=== PATIENT | female | born 1975 | race Caucasian/White ===

== ENCOUNTER 2017-10-20 00:20 | Emergency (ER) | payer MEDICAID ==
[~2017-10-20] VITALS: Ht 152.4 cm; Wt 65.9 kg
[~2017-10-20 00:20] MED LIST: ONDA4TAB59 PO
[2017-10-20] MEDS ORDERED: iohexol 300mg/ml 100ml inj. ONE (00:41)
[2017-10-20 01:16] LABS: HCG SERUM QL NEGATIVE
[2017-10-20 01:17] VITALS: BP 117/69
[2017-10-20 01:18] LABS: INR 0.9 INR; PARTIAL THROMBOPLASTIN TIME 23 SECONDS (22-32); PROTHROMBIN TIME 9.4 SECONDS (9.0-12.0)
[2017-10-20 01:21] LABS: ALANINE AMINOTRANSFERASE 25 U/L (12-78); ALKALINE PHOSPHATASE 75 IU/L (46-116); ANION GAP 14 (8-16); ASPARTATE AMINO TRANSFERASE 31 U/L (10-37); BILIRUBIN,TOTAL 0.6 MG/DL (0.1-1.0); BLOOD UREA NITROGEN 7 MG/DL (7-18); BUN/CREATININE RATIO 9.2 (6.6-38.0); CALCIUM 8.8 MG/DL (8.5-10.1); CHLORIDE 105 MMOL/L (99-107); CREATININE 0.76 MG/DL (0.40-0.90); ETHANOL 0.219 GM/DL (0.0-0.010); GLUCOSE 94 MG/DL (70-104); POTASSIUM 3.7 MMOL/L (3.5-5.1); SODIUM 141 MMOL/L (135-145); TOTAL CARBON DIOXIDE 21.7 MMOL/L (24-32); eGFR 83 ML/MIN
[2017-10-20 01:30] LABS: URINE HCG NEGATIVE (NEG)
[2017-10-20 02:00] LABS: BASOPHILS # (AUTO) 0.1 X10'3 (0-0.2); BASOPHILS % (AUTO) 0.7 % (0-1); EOSINOPHILS # (AUTO) 0.1 X10'3 (0-0.9); EOSINOPHILS % (AUTO) 1.7 % (0-6); HEMATOCRIT 37.6 % (35.0-45.0); HEMOGLOBIN 12.5 g/dl (12.0-16.0); LYMPHOCYTES # (AUTO) 1.5 X10'3 (1.1-4.8); LYMPHOCYTES % (AUTO) 18.3 % (21-51); MEAN CORPUSCULAR HEMOGLOBIN 28.7 PG (27.0-31.0); MEAN CORPUSCULAR HGB CONC 33.3 % (33.0-36.5); MEAN CORPUSCULAR VOLUME 86.2 FL (78-98); MEAN PLATELET VOLUME 7.9 FL (7.4-10.4); MONOCYTES # (AUTO) 0.4 X10'3 (0-0.9); NEUTROPHILS # (AUTO) 6.3 X10'3 (1.8-7.7); NEUTROPHILS % (AUTO) 74.3 % (42-75); PLATELET COUNT 462 X10'3 (140-440); RED BLOOD COUNT 4.37 X10'6 (4.20-5.60); RED CELL DISTRIBUTION WIDTH 17.1 % (11.5-14.5); WHITE BLOOD COUNT 8.4 X10'3 (4.5-11.0)
[2017-10-20 02:15] LABS: CLARITY,URINE CLEAR (Clear); COLOR,URINE YELLOW (Yellow); GLUCOSE, URINE NEGATIVE (Neg); KETONES,URINE NEGATIVE (Neg); LEUKOCYTE ESTERASE ,URINE NEGATIVE (Neg); NITRITES, URINE NEGATIVE (Neg); OCCULT BLOOD,URINE NEGATIVE (Neg); PH,URINE 5.5 (4.8-8.0); PROTEIN,URINE NEGATIVE (Neg); UROBILINOGEN,URINE 0.2 E.U/dL (0.2-1.0)
[2017-10-20 02:16] LABS: UA COLLECTION TYPE CLN CATCH MIDSTREAM
== END 2017-10-20 02:41 | disposition left against medical advice (07) ==
LOC: ER 00:21
DX: F10.129 Alcohol abuse with intoxication, unspecified (principal); R07.89 Other chest pain; R10.10 Upper abdominal pain, unspecified; F17.200 Nicotine dependence, unspecified, uncomplicated; Z56.0 Unemployment, unspecified; Z60.2 Problems related to living alone; V89.2XXA Person injured in unspecified motor-vehicle accident, traffic, initial encounter; W22.11XA Striking against or struck by driver side automobile airbag, initial encounter; Y93.89 Activity, other specified; Y92.410 Unspecified street and highway as the place of occurrence of the external cause; Y99.8 Other external cause status
CPT/HCPCS: 36415; 71045; 71260; 72125; 74177; 80053; 80320; 81003; 81025; 84703; 85025; 85610; 85730; 93005; 99285; J7030; Q9967

== ENCOUNTER 2021-11-25 19:59 | Emergency (ER) | payer BC, MEDICAID ==
[~2021-11-25] VITALS: Ht 152.4 cm; Wt 63.6 kg
[2021-11-25 20:11] VITALS: BP 145/87
[2021-11-25] MEDS ORDERED: HYDROcodone/acetaminophen 5mg/325mg tablet PO ONE (20:50)
[2021-11-25] MEDS ORDERED: HYDR-3965 PO (21:07)
== END 2021-11-25 21:29 | disposition home or self-care (01) ==
LOC: ER 20:00
DX: S52.502A Unspecified fracture of the lower end of left radius, initial encounter for closed fracture (principal); S40.021A Contusion of right upper arm, initial encounter; F41.9 Anxiety disorder, unspecified; F32.9 Major depressive disorder, single episode, unspecified; Z98.51 Tubal ligation status; Z98.890 Other specified postprocedural states; Z60.2 Problems related to living alone; Z56.0 Unemployment, unspecified; Z72.89 Other problems related to lifestyle; Z88.2 Allergy status to sulfonamides; Z88.8 Allergy status to other drugs, medicaments and biological substances; Z79.899 Other long term (current) drug therapy; W18.39XA Other fall on same level, initial encounter; Y93.9 Activity, unspecified; Y92.89 Other specified places as the place of occurrence of the external cause; Y99.8 Other external cause status
CPT/HCPCS: 29125; 99283

== ENCOUNTER 2022-09-15 19:39 | Emergency (ER) | payer BC ==
[~2022-09-15] VITALS: Ht 152.4 cm; Wt 62.3 kg
[2022-09-15 20:00] LABS: BASOPHILS # (AUTO) 0.1 X10'3 (0-0.2); BASOPHILS % (AUTO) 0.8 % (0-1); EOSINOPHILS # (AUTO) 0.1 X10'3 (0-0.9); EOSINOPHILS % (AUTO) 1.5 % (0-6); HEMATOCRIT 40.5 % (35.0-45.0); HEMOGLOBIN 13.7 g/dl (12.0-16.0); LYMPHOCYTES # (AUTO) 1.5 X10'3 (1.1-4.8); LYMPHOCYTES % (AUTO) 19.5 % (21-51); MEAN CORPUSCULAR HGB CONC 33.8 g/dL (33.0-36.5); MEAN CORPUSCULAR VOLUME 91.7 FL (78-98); MEAN PLATELET VOLUME 7.1 FL (7.4-10.4); MONOCYTES # (AUTO) 0.3 X10'3 (0-0.9); MONOCYTES % (AUTO) 3.8 % (2-12); NEUTROPHILS # (AUTO) 5.6 X10'3 (1.8-7.7); NEUTROPHILS % (AUTO) 74.4 % (42-75); PLATELET COUNT 463 X10'3 (140-440); RED BLOOD COUNT 4.41 X10'6 (4.20-5.60); RED CELL DISTRIBUTION WIDTH 13.8 % (11.5-14.5); WHITE BLOOD COUNT 7.5 X10'3 (4.5-11.0)
[2022-09-15 20:11] LABS: ALANINE AMINOTRANSFERASE 16 U/L (12-78); ALBUMIN/GLOBULIN RATIO 1.1 (1.1-1.5); ALKALINE PHOSPHATASE 58 IU/L (46-116); ANION GAP 9 (8-16); ASPARTATE AMINO TRANSFERASE 18 U/L (10-37); BILIRUBIN,TOTAL 0.9 MG/DL (0.1-1.0); BLOOD UREA NITROGEN 17 MG/DL (7-18); BUN/CREATININE RATIO 20.5 (6.6-38.0); CALCIUM 9.1 MG/DL (8.5-10.1); CHLORIDE 103 MMOL/L (99-107); CREATININE 0.83 MG/DL (0.40-0.90); GLUCOSE 104 MG/DL (70-104); POTASSIUM 3.4 MMOL/L (3.5-5.1); SODIUM 137 MMOL/L (135-145); TOTAL CARBON DIOXIDE 24.8 MMOL/L (24-32); TOTAL PROTEIN 7.7 G/DL (6.4-8.2); eGFR 74 ML/MIN
[2022-09-15 20:18] LABS: MAGNESIUM 2.1 MG/DL (1.5-2.4)
[2022-09-15] MEDS ORDERED: LORazepam 1 MG tablet PO ONE (20:30)
[2022-09-15] MEDS ORDERED: LIDOCAINE 2%/EPI 1:100,000 inj. Multi-dose 20 ML VIAL IJ ONE (20:30)
[2022-09-15] MEDS ORDERED: DOXYCYCLINE 100MG CAPSULE PO STA (20:59)
[2022-09-15] MEDS ORDERED: ondansetron 4mg rapidly disintigrating tab PO ONE (21:00)
[2022-09-15] MEDS ORDERED: cephalexin 250mg capsule PO ONE (21:00)
[2022-09-15] MEDS ORDERED: DOXY100C77 PO (21:04)
[2022-09-15] MEDS ORDERED: CEPH250T PO (21:04)
[2022-09-15 21:39] VITALS: BP 128/72
== END 2022-09-15 21:40 | disposition home or self-care (01) ==
LOC: EEVIPCON 19:41 → ER 19:41
DX: L02.215 Cutaneous abscess of perineum (principal)
CPT/HCPCS: 36415; 46040; 71045; 80053; 83735; 83880; 84484; 85025; 93005; 99285; A6266; A6449

== ENCOUNTER 2023-02-15 03:02 | Outpatient (CLI) | payer BC ==
[2023-02-15 03:51] LABS: BASOPHILS # (AUTO) 0.1 X10'3 (0-0.2); BASOPHILS % (AUTO) 0.7 % (0-1); EOSINOPHILS # (AUTO) 0.3 X10'3 (0-0.9); EOSINOPHILS % (AUTO) 2.6 % (0-6); HEMATOCRIT 37.9 % (35.0-45.0); HEMOGLOBIN 12.7 g/dl (12.0-16.0); LYMPHOCYTES # (AUTO) 3.1 X10'3 (1.1-4.8); LYMPHOCYTES % (AUTO) 31.8 % (21-51); MEAN CORPUSCULAR HEMOGLOBIN 31.3 PG (27.0-31.0); MEAN CORPUSCULAR HGB CONC 33.6 g/dL (33.0-36.5); MEAN CORPUSCULAR VOLUME 93.3 FL (78-98); MEAN PLATELET VOLUME 7.6 FL (7.4-10.4); MONOCYTES # (AUTO) 0.6 X10'3 (0-0.9); MONOCYTES % (AUTO) 5.8 % (2-12); NEUTROPHILS # (AUTO) 5.8 X10'3 (1.8-7.7); NEUTROPHILS % (AUTO) 59.1 % (42-75); PLATELET COUNT 418 X10'3 (140-440); RED BLOOD COUNT 4.06 X10'6 (4.20-5.60); RED CELL DISTRIBUTION WIDTH 13.9 % (11.5-14.5); WHITE BLOOD COUNT 9.9 X10'3 (4.5-11.0)
[2023-02-15 04:05] LABS: ANION GAP 10 (8-16); CHLORIDE 104 MMOL/L (99-107); GLUCOSE 86 MG/DL (70-104); POTASSIUM 3.8 MMOL/L (3.5-5.1); SODIUM 139 MMOL/L (135-145); TOTAL CARBON DIOXIDE 24.6 MMOL/L (24-32)
[2023-02-15 04:06] LABS: ALANINE AMINOTRANSFERASE 19 U/L (12-78); ALBUMIN 3.9 G/DL (3.4-5.0); ALBUMIN/GLOBULIN RATIO 1.1 (1.1-1.5); ASPARTATE AMINO TRANSFERASE 12 U/L (10-37); BILIRUBIN,TOTAL 0.3 MG/DL (0.1-1.0); BLOOD UREA NITROGEN 15 MG/DL (7-18); BUN/CREATININE RATIO 19.7 (10.0-20.0); CALCIUM 9.1 MG/DL (8.5-10.1); CREATININE 0.76 MG/DL (0.40-0.90); TOTAL PROTEIN 7.4 G/DL (6.4-8.2); eGFR 82 ML/MIN
[2023-02-15 04:07] LABS: ALKALINE PHOSPHATASE 57 IU/L (46-116); CHOL/HDL RATIO 2.9 (0.00-4.99); CHOLESTEROL 224 MG/DL (0-200); HDL CHOLESTEROL 76 MG/DL (35-60); LDL CHOLESTEROL 119 MG/DL (50-100); THYROID STIMULATING HORMONE 3.32 ulU/ml (0.34-4.50); TRIGLYCERIDES 53 MG/DL (20-135)
== END 2023-02-15 23:59 | disposition home or self-care (01) ==
LOC: LAB 03:02
PROVIDERS: ATTEND Emergency Medicine
DX: E78.5 Hyperlipidemia, unspecified (principal); R53.83 Other fatigue; Z86.2 Personal history of diseases of the blood and blood-forming organs and certain disorders involving the immune mechanism; Z84.2 Family history of other diseases of the genitourinary system
CPT/HCPCS: 36415; 80053; 80061; 82306; 82607; 84443; 85025

== ENCOUNTER 2023-11-14 23:14 | Emergency (ER) | payer BC ==
[~2023-11-14] VITALS: Ht 152.4 cm; Wt 62.7 kg
[2023-11-14 23:15] VITALS: BP 142/81; PULSE 90; RESP 16; TEMP 98; O2SAT 98
[2023-11-14] MEDS ORDERED: PRED50TA PO (23:43)
[2023-11-14] MEDS: dexamethasone sod phosphate 10mg/ml inj IM STA (23:45)
== END 2023-11-14 23:51 | disposition home or self-care (01) ==
LOC: ER 23:14
DX: T78.40XA Allergy, unspecified, initial encounter (principal); Z88.2 Allergy status to sulfonamides; Z79.899 Other long term (current) drug therapy; Z98.890 Other specified postprocedural states; Z98.51 Tubal ligation status; W57.XXXA Bitten or stung by nonvenomous insect and other nonvenomous arthropods, initial encounter
CPT/HCPCS: 96372; 99283; J1100

== ENCOUNTER 2023-12-28 03:12 | Emergency (ER) | payer BC ==
[~2023-12-28] VITALS: Ht 152.4 cm; Wt 71.8 kg
[~2023-12-28 03:12] MED LIST changes: +PRED50TA PO
[2023-12-28 03:18] VITALS: TEMP 98.4
[2023-12-28] MEDS ORDERED: AMOX-419 PO (03:43)
[2023-12-28 05:15] VITALS: BP 132/84; PULSE 84; RESP 20; O2SAT 99
[2023-12-28] MEDS: ondansetron 4mg rapidly disintigrating tab PO ONE (05:17)
[2023-12-28] MEDS: amox tr/potassium clavulanate 875/125mg TAB PO ONE (05:17)
== END 2023-12-28 05:37 | disposition home or self-care (01) ==
LOC: ER 03:13
DX: S61.551A Open bite of right wrist, initial encounter (principal); F41.9 Anxiety disorder, unspecified; F32.A Depression, unspecified; Z98.890 Other specified postprocedural states; Z98.51 Tubal ligation status; Z72.89 Other problems related to lifestyle; Z60.2 Problems related to living alone; Z56.0 Unemployment, unspecified; Z88.8 Allergy status to other drugs, medicaments and biological substances; Z79.52 Long term (current) use of systemic steroids; Z79.899 Other long term (current) drug therapy; W55.01XA Bitten by cat, initial encounter; Y93.89 Activity, other specified; Y92.89 Other specified places as the place of occurrence of the external cause; Y99.8 Other external cause status
CPT/HCPCS: 99283

== ENCOUNTER 2024-06-29 17:10 | Outpatient (CLI) | payer BC ==
[2024-06-29 17:56] LABS: URINE AMPHETAMINE SCREEN NEGATIVE (Neg); URINE BARBITUATE SCREEN NEGATIVE (Neg); URINE BENZODIAZEPINES SCREEN NEGATIVE (Neg); URINE CANNABINOID SCREEN NEGATIVE (Neg); URINE COCAINE SCREEN NEGATIVE (Neg); URINE METHADONE SCREEN NEGATIVE (Neg); URINE OPIATE SCREEN NEGATIVE (Neg); URINE PHENCYCLIDINE SCREEN NEGATIVE (Neg)
== END 2024-06-29 23:59 | disposition home or self-care (01) ==
LOC: LAB 17:10
PROVIDERS: ATTEND Licensed Practical Nurse
DX: F41.9 Anxiety disorder, unspecified (principal)
CPT/HCPCS: 80305

== ENCOUNTER 2024-09-08 16:34 | Outpatient (CLI) | payer BC ==
[2024-09-08 17:36] LABS: BASOPHILS % (AUTO) 0.4 % (0-1); EOSINOPHILS # (AUTO) 0.1 X10'3 (0-0.9); EOSINOPHILS % (AUTO) 1.1 % (0-6); HEMATOCRIT 38.2 % (35.0-45.0); HEMOGLOBIN 12.8 g/dl (12.0-16.0); LYMPHOCYTES # (AUTO) 1.9 X10'3 (1.1-4.8); LYMPHOCYTES % (AUTO) 17.1 % (21-51); MEAN CORPUSCULAR HEMOGLOBIN 30.1 PG (27.0-31.0); MEAN CORPUSCULAR HGB CONC 33.6 g/dL (33.0-36.5); MEAN CORPUSCULAR VOLUME 89.6 FL (78-98); MEAN PLATELET VOLUME 7.7 FL (7.4-10.4); MONOCYTES # (AUTO) 0.3 X10'3 (0-0.9); MONOCYTES % (AUTO) 3.2 % (2-12); NEUTROPHILS # (AUTO) 8.5 X10'3 (1.8-7.7); NEUTROPHILS % (AUTO) 78.2 % (42-75); PLATELET COUNT 423 X10'3 (140-440); RED BLOOD COUNT 4.26 X10'6 (4.20-5.60); RED CELL DISTRIBUTION WIDTH 14.6 % (11.5-14.5); WHITE BLOOD COUNT 10.8 X10'3 (4.5-11.0)
[2024-09-08 17:43] LABS: ALANINE AMINOTRANSFERASE 17 U/L (12-78); ALBUMIN 3.7 G/DL (3.4-5.0); ALKALINE PHOSPHATASE 60 IU/L (46-116); ANION GAP 9 (8-16); ASPARTATE AMINO TRANSFERASE 12 U/L (10-37); BILIRUBIN,TOTAL 0.8 MG/DL (0.1-1.0); BLOOD UREA NITROGEN 11 MG/DL (7-18); BUN/CREATININE RATIO 16.9 (10.0-20.0); CALCIUM 8.6 MG/DL (8.5-10.1); CHLORIDE 105 MMOL/L (99-107); CHOLESTEROL 192 MG/DL (0-200); CREATININE 0.65 MG/DL (0.40-0.90); GLUCOSE 95 MG/DL (70-104); HDL CHOLESTEROL 64 MG/DL (35-60); LDL CHOLESTEROL 117 MG/DL (50-100); POTASSIUM 3.9 MMOL/L (3.5-5.1); SODIUM 138 MMOL/L (135-145); THYROID STIMULATING HORMONE 1.08 ulU/ml (0.34-4.50); TOTAL CARBON DIOXIDE 23.6 MMOL/L (24-32); TOTAL PROTEIN 7.4 G/DL (6.4-8.2); TRIGLYCERIDES 56 MG/DL (20-135); eGFR > 90 ML/MIN
[2024-09-08 17:45] LABS: HEMOGLOBIN A1C 5.6 % (4.5-6.2)
[2024-09-10 08:12] LABS: ESTRADIOL 54.7 pg/mL (.); FOLATE SERUM(FOLIC) 5.9 ng/mL (>3.0); FSH, SERUM 9.7 mIU/mL (.); LUTEINIZING HORMONE 6.6 mIU/mL (.); PROGESTERONE 5.4 ng/mL (.)
== END 2024-09-08 23:59 | disposition home or self-care (01) ==
LOC: RAD 16:34
PROVIDERS: ATTEND Nurse Practitioner
DX: E55.9 Vitamin D deficiency, unspecified (principal); R00.2 Palpitations; R07.9 Chest pain, unspecified; F41.1 Generalized anxiety disorder; Z13.220 Encounter for screening for lipoid disorders; Z13.29 Encounter for screening for other suspected endocrine disorder; R73.9 Hyperglycemia, unspecified
CPT/HCPCS: 36415; 80053; 80061; 82180; 82306; 82607; 82670; 82746; 83001; 83002; 83036; 84144; 84443; 85025

== ENCOUNTER 2024-10-29 02:29 | Emergency (ER) | payer BC ==
[~2024-10-29] VITALS: Ht 152.4 cm; Wt 74.8 kg
[2024-10-29 02:35] VITALS: TEMP 97.7
[2024-10-29] MEDS: ondansetron 4mg rapidly disintigrating tab PO ONE (03:10)
--- NOTE | 2024-10-29 03:42 | Physician Documentation ---
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 Pain is now severe, and she reports difficulty walking due to pain. She denies any fevers or chills. She reports a history of similar symptoms multiple times in the past. Usually symptoms resolve on their own, but 3 times she was required incision and drainage. She was also had outpatient surgery in 2019, but continues to have recurrence of abscesses to the area. Tetanus Within 5 Years: Yes Medication Reconciliation Allergies: Coded Allergies: sulfamethoxazole (Verified Allergy, Intermediate, NAUSEA, RASH, 10/29/24) trimethoprim (Verified Allergy, Intermediate, NAUSEA, RASH, 10/29/24) Scheduled Doxycycline Hyclate (Doxycycline Hyclate), 1 CAP PO Q12H Ondansetron Hcl (Ondansetron Hcl), 4 MG PO Q6H Prednisone (Prednisone), 1 TAB PO DAILY Scheduled PRN Hydrocodone Bit/Acetaminophen 5/325 MG ([place] 5/325 MG), 1 TAB PO Q12H PRN PRN for pain ONDANSETRON ODT 4mg tablet (Ondansetron Odt), 1 TAB PO Q6H PRN PRN for nausea/vomiting Past Medical History Past Medical History: No Pertinent History, Anxiety, Depression Past Surgical History: , tubal ligation Alcohol Use: Occasionally Drug Use: none Lives with: Alone Lives In: Home Occupation: unemployed Review of Systems All Other Systems at this time: Reviewed and Negative ROS As stated above in the HPI, otherwise all systems are reviewed and negative. Physical Exam Vital Signs: RN Vital Signs have been reviewed: Yes, Temperature: 97.7, Source: Temporal, Heart Rate: 90, Respiratory Rate: 16, BP: 120/78, Pulse Oximetry: 99, Weight: 74.800 Oxygen Flow Rate: 0 Pulse Oximetry Reflects: adequate oxygenation Physical Exam General: The patient is well developed, well nourished, nontoxic appearing and is in no acute distress. Skin: (with female detention attendant present - REYNA Benavides) Just below the left medial buttock with 3cm x 2cm swollen mass with tenderness and fluctuance. [place], warm and dry with no rashes. HEENT: Head was normocephalic and atraumatic. Chest: Clear to auscultation bilaterally without wheezes, rales or rhonchi. No accessory muscle use. No dullness to percussion. Heart: Rate regular and rhythmic. S1, S2. No murmurs. Palpation of the chest wall was normal. No rubs or thrills. Extremities: No cyanosis, clubbing or edema. The patient moves all extremities. Pulses were equal and symmetric. Neurologic: Motor and sensation grossly intact. Cranial nerves II-XII grossly intact. A & O x4. Psychologic: Normal mood and affect. No agitation. Procedures I & D Procedure : Site: below left medial buttock Anesthesia: Lidocaine w/ Epi Volume Anesthetic (mls): 2 Blade Size: 11 Prep/Supplies: packing placed (1/4 iodoform gauze) Incision: pus drained (3cc), blood drained, other (loculations broken) Tolerated Procedure Well?: yes, no complications Progress Results/Orders Reviewed/noted all lab results: Yes Results/Orders Completed Orders - PHILLIP UREÑA MD Ondansetron Disint. Tablet (Zofran Odt T (10/29/24 03:05) Hydrocodone/Apap 10/325 ([place] 10/325mg (10/29/24 03:50) Diazepam Tablet (Valium Tablet) (10/29/24 03:50) Doxycycline 100mg Capsule (Vibramycin 10 (10/29/24 03:50) Lidocaine 1% W/Epi 1:100,000 (Xylocaine (10/29/24 04:00) Medications Received in ER Medications (Trade) Dose Ordered Sig/Lester Route PRN Reason Start Time Stop Time Status Last Admin Dose Admin (Zofran ODT tablet) 4 mg ONCE ONCE PO 10/29/24 03:05 10/29/24 03:06 DC 10/29/24 03:10 4 MG ([place] 10/325mg tab) 1 tab ONCE ONCE PO 10/29/24 03:50 10/29/24 03:52 DC 10/29/24 04:01 1 TAB (Valium tablet) 10 mg ONCE ONCE PO 10/29/24 03:50 10/29/24 03:52 DC 10/29/24 04:01 10 MG (VIBRAMYCIN 100mg capsule) 100 mg ONCE STAT PO 10/29/24 03:50 10/29/24 03:52 DC 10/29/24 04:01 100 MG Vital Signs 10/29/24 10/29/24 10/29/24 10/29/24 02:35 02:58 04:01 05:07 Temp 97.7 Pulse 121 90 89 Resp 16 16 16 14 B/P (MAP) 116/77 120/78 (92) 127/78 (94) Pulse Ox 98 99 100 O2 Flow Rate 0 0 0 Re-Evaluation Re-Evaluation : Re-Evaluation: Improved Progress Patient was seen and examined. Patient was given reassurance. The patient has had recurrence abscesses in the same location. Sebaceous cyst is the presumptive diagnosis since it keeps on returning. Patient received antibiotics Valium [place] Zofran and then was I and D with Lido and epi. Loculations reduced irrigated packed and the patient was given discharge instructions. Patient is otherwise in good health has no other complaints. Medical Decision Making Additional info obtained from: old records Differential Dx:Considerations: Include: Abscess, Bacteremia, Cellulitis, Gas gangrene, Septicemia, Other Departure Time of Disposition: 04:49 Disposition: HOME / SELF CARE / HOMELESS Impression: Primary Impression: Abscess of buttock, left Condition: Stable Discharge Instructions: Skin Abscess, [id number] Additional Instructions: Take full course of antibiotics as prescribed. Follow up with your regular doctor, or the surgeon listed in this packet for evaluation and definitive treatment. Departure Forms: Excuse form Work or School Excused From: Work Excuse beginning now through the following date: October 31, 2024 Additional Instructions: May return sooner if feeling improved. Referrals: MITCHEL GODINEZ MD Prescriptions Hydrocodone Bit/Acetaminophen 5/325 MG ([place] 5/325 MG) 5 Mg/325 Mg Tablet 1 TAB PO Q12H PRN PRN for pain for 5 Days, #10 TAB Prov: PHILLIP UREÑA MD 10/29/24 ONDANSETRON ODT 4mg tablet (ONDANSETRON ODT) 4 Mg Tab.rapdis 1 TAB PO Q6H PRN PRN for nausea/vomiting for 4 Days, #16 TAB 0 Refills Prov: PHILLIP UREÑA MD 10/29/24 Doxycycline Hyclate (Doxycycline Hyclate) 100 Mg Capsule 1 CAP PO Q12H for 10 Days, #20 CAP Prov: PHILLIP UREÑA MD 10/29/24 Education Educated: Patient Educated regarding: diagnosis, treatment, need for follow up Signature Scribe Signature: Scribed for Phillip Ureña MD by Marianela Bragg . 10/29/24 03:56 Attestation: The note accurately reflects work and decisions made by me.Phillip Ureña MD 10/29/24 03:41 PHILLIP UREÑA MD October 29, 2024 03:42 MARIANELA CAAL October 29, 2024 04:29
[2024-10-29] MEDS: HYDROcodone/acetaminophen 10/325mg tab PO ONE (04:01)
[2024-10-29] MEDS: DOXYCYCLINE 100MG CAPSULE PO STA (04:01)
[2024-10-29] MEDS: diazepam 5mg tablet PO ONE (04:01)
[2024-10-29] MEDS: LIDOcaine 1% W/epiNEPHrine 1:100,000 20ml vial SQ ONE (04:05)
[2024-10-29 05:07] VITALS: BP 127/78; PULSE 89; RESP 14; O2SAT 100
[2024-10-29] MEDS ORDERED: DOXY-1 PO (05:14)
[2024-10-29] MEDS ORDERED: ONDA-243 PO (05:14)
[2024-10-29] MEDS ORDERED: HYDR-3965 PO (05:15)
== END 2024-10-29 05:21 | disposition home or self-care (01) ==
LOC: ER 02:30
DX: L02.31 Cutaneous abscess of buttock (principal); F41.9 Anxiety disorder, unspecified; F32.A Depression, unspecified; Z88.2 Allergy status to sulfonamides; Z88.8 Allergy status to other drugs, medicaments and biological substances; Z98.51 Tubal ligation status; Z79.899 Other long term (current) drug therapy; Z56.0 Unemployment, unspecified; Z72.89 Other problems related to lifestyle; Z60.2 Problems related to living alone; Z98.890 Other specified postprocedural states
CPT/HCPCS: 10060; 99284

== ENCOUNTER 2025-01-20 16:55 | Outpatient (CLI) | payer BC ==
[~2025-01-20 16:55] MED LIST changes: +ONDA-243 PO
[2025-01-20 17:30] LABS: CREATININE 0.67 MG/DL (0.40-0.90); eGFR > 90 ML/MIN
[2025-01-20 18:00] LABS: % IRON SATURATION 11 % (11-46)
== END 2025-01-20 23:59 | disposition home or self-care (01) ==
LOC: LAB 16:55
PROVIDERS: ATTEND Nurse Practitioner
DX: K90.9 Intestinal malabsorption, unspecified (principal)
CPT/HCPCS: 36415; 82180; 82306; 82310; 82330; 82565; 82607; 82746; 83540; 83550; 83970; 84425; 84590

== ENCOUNTER 2025-01-25 15:32 | Outpatient (CLI) | payer BC ==
[2025-01-25] MEDS ORDERED: iohexol 300mg/ml 100ml inj. ONE (16:00)
--- NOTE | 2025-01-25 17:16 | RADIOLOGY REPORT ---
Indication: OTHER CONGENITAL MALFORMATIONS OF URETER Technique: CT axial images of the abdomen and pelvis are obtained with and without intravenous contra st. Coronal and sagittal reformats were obtained. Comparison: None FINDINGS: Lung bases demonstrate atelectasis. Adrenal glands, spleen, pancreas unremarkable. No CT evidence for cholelithiasis. No enhancing hepatic lesion Partially duplicated right renal collecting system. There is dilatation of the proximal right ureter to 14 mm. Left kidney demonstrates no hydronephrosis. Stomach partially distended. Small bowel loops are normal in caliber. Moderate volume stool within the colon. Normal appendix. Abdominal aortic atherosclerotic disease. Bladder partially distended. Intrauterinem device. Left ov jai/ adnexal cystic lesion measuring 2.3 cm. Heterogeneous appearance of the uterus. No free pelvic fluid. No inguinal lymphadenopathy. Mild thoracolumbar degenerative disc disease. IMPRESSION: The right kidney demonstrates a partially duplicated collecting system. There is also dilatation of the proximal right ureter to [address] of the abdomen pelvis with IV contrast with excretory phase imaging (urogram protocol) to evaluate the right ureteral course as well as to exclud e any type of underlying ureteral obstruction. No nephrolithiasis identified. Heterogeneous appearance of the uterus. Recommend pelvic ultrasound to evaluate. Intrauterine device. Left ovarian/ adnexal cystic lesion measuring 2.3 cm. Other findings as described
== END 2025-01-25 23:59 | disposition home or self-care (01) ==
LOC: RAD 15:32
PROVIDERS: ATTEND Nurse Practitioner
DX: Q62.8 Other congenital malformations of ureter (principal)
CPT/HCPCS: 74178; Q9967

== ENCOUNTER 2025-02-15 15:33 | Outpatient (CLI) | payer BC ==
--- NOTE | 2025-02-16 00:10 | VASCULAR REPORT ---
INDICATION: possible aortic atherosclerosis TECHNIQUE: sonogram of aorta COMPARISON: None FINDINGS: proximal aorta measures 1.8cm. middle aorta measures 1.7 cm. distal aorta measures 1.5 cm. IMPRESSION: 1. No sonographic evidence of atherosclerosis or aneurysm.
== END 2025-02-15 23:59 | disposition home or self-care (01) ==
LOC: VAS 15:33
PROVIDERS: ATTEND Nurse Practitioner
DX: I70.0 Atherosclerosis of aorta (principal)
CPT/HCPCS: 93978

== ENCOUNTER 2025-04-13 10:17 | Day surgery (SDC) | payer BC ==
[~2025-04-13] VITALS: Ht 152.4 cm; Wt 67.1 kg
[2025-04-13] VITALS (18 sets, daily range): BP systolic 95–109; BP diastolic 53–73; PULSE 56–71; RESP 10–19; TEMP 97.7; O2SAT 90–100
[2025-04-13] MEDS: ceFAZolin 2gm/dext,iso 50mL 50 ML IV ONE (05:30)
[~2025-04-13 10:17] MED LIST changes: +CHOL200080 PO; +FERR325T29 PO; +HYDR-3686 PO; +MULT-1085 PO; +ONDA-103 PO; -ONDA-243 PO; -ONDA4TAB59 PO; -PRED50TA PO; +ePHEDrine 50MG/ML INJ. ONE
--- NOTE | 2025-04-13 11:02 | ELECTROCARDIOGRAPH REPORT ---
[facility] Test Date: 2025-04-13 Test Time: 10:57:08 Pat Name: IVAN TERRAZAS Department: [facility] Patient ID: [facility]-[id number] Room: Gender: F [employer] Lead: : 1975 Requested By: TANGELA FOSTER Order Number: [id number] Reading MD: Dr. OPHELIA Jean Measurements Intervals [place] Rate: 65 P: 76 IN: 142 QRS: 72 QRSD: 84 T: 62 QT: 407 QTc: 424 Interpretive Statements Sinus rhythm RSR' in V1 or V2, right VCD or RVH Electronically Signed On 04-13-2025 17:41:[address] OPHELIA Jean Please click the below link to view image of tracing.
[2025-04-13] MEDS: ringers solution, lacted 1,000 ML IV SCH (11:05)
[2025-04-13 11:33] LABS: MEAN PLATELET VOLUME 8.0 FL (7.4-10.4); RED CELL DISTRIBUTION WIDTH 14.1 % (11.5-14.5)
[2025-04-13] MEDS ORDERED: iohexol 300 MG/1 ML 50ml polymer ONE (11:59)
[2025-04-13 12:02] LABS: CREATININE 0.71 MG/DL (0.40-0.90); PRE OP ALT 15 U/L (30-65); PRE OP ANION GAP 6 (8-16); PRE OP AST 12 U/L (10-37); PRE OP BILIRUB, TOTAL 0.5 MG/DL (0.0-1.0); PRE OP GLUCOSE 91 MG/DL (70-104); PRE OP POTASSIUM 3.6 MMOL/L (3.4-5.1); PRE OP SODIUM 139 MMOL/L (135-145); TOTAL CARBON DIOXIDE 25.6 MMOL/L (24-32); eCRCL 68 ML/MIN; eGFR 87 ML/MIN
[2025-04-13] MEDS ORDERED: fentaNYL/PF 50MCG/1 ML 2ML syringe ONE (12:42)
[2025-04-13] MEDS ORDERED: midazolam 1 mg/ML 2ml injection ONE (12:42)
[2025-04-13] MEDS ORDERED: dexamethasone sod phosphate 4mg/ml inj. ONE (12:51)
[2025-04-13] MEDS ORDERED: propofol inj 20 ML IV ONE (12:51)
[2025-04-13] MEDS ORDERED: LIDOcaine 2% (20mg/ml) 5ml vial ONE (12:51)
[2025-04-13] MEDS ORDERED: ondansetron/PF 4mg/2ml inj ONE (12:51)
[2025-04-13] MEDS: iohexol 300 MG/1 ML 50ml polymer ICATH ONE (12:59)
--- NOTE | 2025-04-13 13:08 | OPERATIVE REPORT ---
Operative Report Providers to ~ Date of Procedure: Apr 13, 2025 Pre-Operative Diagnosis: Right hydronephrosis Post-Operative Diagnosis SAME as PRE-Op Procedure Performed Cystoscopy right retrograde pyelogram. Surgeon: MD Shahla Ed Transporter None Anesthesiologist: Segun Ramirez Type of Anesthesia: General Findings: Dilated ileal ureter part way up with no obstruction. Complications None Prosthetics\Implants used: None Estimated Blood Loss: Minimal Specimen Removed: None Description of Procedure: Patient was brought to the operating room given a general anesthetic and placed in the dorsal lithotomy position she was prepped and draped in the normal sterile fashion a time-out was performed a 22 Turkmen cystoscope inserted via urethra. The right ureteral orifice was in the normal orthotopic position was intubated with a five Turkmen open-ended catheter and retrograde pyelogram was performed this showed a normal ureter in the distal ureter however proximal it was very clearly an ileal ureter as it got much larger in caliber but there was no transition point that was clear. There was no sign of stricture or mass. No filling defects no concerning findings. After this the bladder was drained of urine the cystoscope was removed via urethra this marked the end of the procedure. No abnormal findings unclear etiology of pain. REZA MICHEL MD Apr 13, 2025 13:08
[2025-04-13] MEDS ORDERED: ringers solution, lacted 1,000 ML IV SCH (13:25)
[2025-04-13] MEDS ORDERED: labetalol 20mg/4ml (5mg/ml) syringe IV PRN (13:25)
[2025-04-13] MEDS ORDERED: fentaNYL/PF 50MCG/1 ML 2ML syringe IV PRN ×2 (13:25)
[2025-04-13] MEDS ORDERED: HYDROmorphone/PF 0.2 MG/ML SYRINGE IV PRN ×2 (13:25)
[2025-04-13] MEDS ORDERED: morphine 4 MG/ML inj SYRINge IV PRN (13:25)
[2025-04-13] MEDS ORDERED: enalaprilat 1.25mg/ml 2ml vial IV PRN (13:25)
[2025-04-13] MEDS: ondansetron/PF 4mg/2ml inj IV PRN (13:30)
== END 2025-04-13 15:37 | disposition home or self-care (01) ==
LOC: PAS 10:17
PROVIDERS: ATTEND Urology
DX: N13.30 Unspecified hydronephrosis (principal); F17.210 Nicotine dependence, cigarettes, uncomplicated; Z87.440 Personal history of urinary (tract) infections; Z79.899 Other long term (current) drug therapy; Z98.51 Tubal ligation status; Z98.891 History of uterine scar from previous surgery; Z98.890 Other specified postprocedural states; Z88.1 Allergy status to other antibiotic agents; Z88.8 Allergy status to other drugs, medicaments and biological substances
CPT/HCPCS: 36415; 52005; 74420; 80053; 82948; 85025; 93005; C1758; J1100; J2003; J2250; J2405; J2704; J3010; J3490; J7030; J7120; Q9967; Z7506; Z7512; 76000; A4618

== ENCOUNTER 2025-06-09 10:45 | Outpatient (CLI) | payer BC ==
[~2025-06-09 10:45] MED LIST changes: -ePHEDrine 50MG/ML INJ. ONE
[2025-06-09 16:07] LABS: MEAN PLATELET VOLUME 7.3 FL (7.4-10.4); RED CELL DISTRIBUTION WIDTH 14.3 % (11.5-14.5)
[2025-06-09 16:29] LABS: CREATININE 0.75 MG/DL (0.40-0.90); PHOSPHORUS 3.7 MG/DL (2.3-4.5); TOTAL CARBON DIOXIDE 25.5 MMOL/L (24-32); eGFR 82 ML/MIN
[2025-06-09 16:46] LABS: % IRON SATURATION 13 % (11-46)
== END 2025-06-09 23:59 | disposition home or self-care (01) ==
LOC: LAB 10:45
PROVIDERS: ATTEND Nurse Practitioner
DX: E55.9 Vitamin D deficiency, unspecified (principal); K90.9 Intestinal malabsorption, unspecified; N32.81 Overactive bladder
CPT/HCPCS: 36415; 80053; 80069; 82306; 83540; 83550; 85025

== ENCOUNTER 2025-06-09 13:22 | Outpatient (CLI) | payer BC ==
--- NOTE | 2025-06-10 11:53 | RADIOLOGY REPORT ---
PROCEDURE: [facility] Exam Date: 06/09/2025 01:37 PM. CLINICAL HISTORY: ABNORMAL RADIOLOGIC FINDINGS ON DX IMAGING OF R KIDNEY Comparison Study: CT dated 01/25/2025 Nuclear Medicine Renal Scan with Lasix. TECHNIQUE: Following the intravenous administration of 7.2 mCi of technetium 99m labeled MAG-3 , flow images were acquired in one second intervals. This was followed by functional imaging of the kidneys in the posterior projection which were obtained at 20 seconds intervals reconstructed into 2 minute frames for a total of 34 minutes. 40 mg of Lasix were given IV at the 10 minute vero. Flow curves and functional renogram curves were generated. Split function data were generated from the first three minutes of the study. FINDINGS: The flow study reveals prompt visualization of both kidneys with normal flow bilaterally. The kidneys are normal size, location and contour. The functional data was obtained with the renal pelvis included in the region of interest: Left: Peak time on the left is 2.2 minutes. Peak to 1/2 peak on the left is 3.5 minutes. Diuretic T 1/2 on the left is 8.25 minutes. Right: Peak time on the right is 2.7 minutes. Peak to 1/2 peak on the right is 9 minutes. Diuretic T 1/2 on the right is 8.25 minutes. Split function is 51 % on the left and 49 % on the right. IMPRESSION: Right hydronephrosis with delayed excretion and is responsive to Lasix administration.
== END 2025-06-09 23:59 | disposition home or self-care (01) ==
LOC: RAD 13:22
PROVIDERS: ATTEND Urology
DX: N13.30 Unspecified hydronephrosis (principal); R93.421 Abnormal radiologic findings on diagnostic imaging of right kidney
CPT/HCPCS: 78708; A9562; J1938